=== PATIENT | male | born 1935 | race Caucasian/White ===

== ENCOUNTER 2018-02-02 03:39 | Outpatient (CLI) | payer MEDICARE, BC | END 2018-02-02 23:59 | disposition home or self-care (01) | LOC: DIABETIC 03:39 | PROVIDERS: ATTEND Internal Medicine | DX: E11.9 Type 2 diabetes mellitus without complications (principal); I10 Essential (primary) hypertension; J44.9 Chronic obstructive pulmonary disease, unspecified; Z87.891 Personal history of nicotine dependence | CPT/HCPCS: G0108 ==

== ENCOUNTER 2018-05-18 05:15 | Outpatient (CLI) | payer MEDICARE, BC | END 2018-05-18 23:59 | disposition home or self-care (01) | LOC: DIABETIC 05:15 | PROVIDERS: ATTEND Internal Medicine | DX: E11.9 Type 2 diabetes mellitus without complications (principal) | CPT/HCPCS: G0108 ==

== ENCOUNTER 2018-06-06 06:55 | Day surgery (SDC) | payer MEDICARE, BC ==
[2018-06-04 12:30] LABS: BASOPHILS % (AUTO) 0.4 % (0-1); EOSINOPHILS # (AUTO) 0.1 X10'3 (0-0.9); EOSINOPHILS % (AUTO) 1.6 % (0-6); HEMATOCRIT 45.3 % (42.0-52.0); HEMOGLOBIN 15.3 g/dl (14.0-17.9); LYMPHOCYTES # (AUTO) 1.5 X10'3 (1.1-4.8); LYMPHOCYTES % (AUTO) 21.4 % (21-51); MEAN CORPUSCULAR HEMOGLOBIN 30.1 PG (27.0-31.0); MEAN CORPUSCULAR HGB CONC 33.7 % (33.0-36.5); MEAN CORPUSCULAR VOLUME 89.5 FL (78-98); MEAN PLATELET VOLUME 8.6 FL (7.4-10.4); MONOCYTES # (AUTO) 0.6 X10'3 (0-0.9); MONOCYTES % (AUTO) 8.5 % (2-12); NEUTROPHILS # (AUTO) 4.8 X10'3 (1.8-7.7); NEUTROPHILS % (AUTO) 68.1 % (42-75); PLATELET COUNT 230 X10'3 (140-440); RED BLOOD COUNT 5.06 X10'6 (4.70-6.10); RED CELL DISTRIBUTION WIDTH 14.8 % (11.5-14.5); WHITE BLOOD COUNT 7.1 X10'3 (4.5-11.0)
[2018-06-04 12:41] LABS: INR 1.7 INR; PARTIAL THROMBOPLASTIN TIME 37 SECONDS (22-32); PROTHROMBIN TIME 17.6 SECONDS (9.0-12.0)
[2018-06-04 12:50] LABS: ALANINE AMINOTRANSFERASE 22 U/L (12-78); ALBUMIN 3.5 G/DL (3.4-5.0); ALBUMIN/GLOBULIN RATIO 1.1 (1.1-1.5); ALKALINE PHOSPHATASE 87 IU/L (46-116); ANION GAP 9 (8-16); ASPARTATE AMINO TRANSFERASE 11 U/L (10-37); BILIRUBIN,TOTAL 0.4 MG/DL (0.1-1.0); BLOOD UREA NITROGEN 20 MG/DL (7-18); BUN/CREATININE RATIO 19.4 (5.4-32.0); CALCIUM 8.9 MG/DL (8.5-10.1); CHLORIDE 103 MMOL/L (99-107); CREATININE 1.03 MG/DL (0.60-1.10); GLUCOSE 121 MG/DL (70-104); POTASSIUM 3.9 MMOL/L (3.5-5.1); SODIUM 139 MMOL/L (135-145); TOTAL PROTEIN 6.6 G/DL (6.4-8.2); eGFR 69 ML/MIN
[~2018-06-06] VITALS: Ht 170.2 cm; Wt 116.9 kg
[2018-06-06] VITALS (12 sets, daily range): BP systolic 120–146; BP diastolic 55–87
[2018-06-06] MEDS ORDERED: insulin Lispro (HumaLOG) vial - multi-dose SQ SCH (07:15)
[2018-06-06] MEDS ORDERED: dextrose 50%-water 50ml dispensing syringe IV PRN ×2 (07:15)
[2018-06-06] MEDS ORDERED: nitroGLYCERIN 0.4mg SUBLingual tab SL PRN (07:15)
[2018-06-06] MEDS ORDERED: dextrose ORAL solution 15 GM/59 ML bottle PO PRN ×2 (07:15)
[2018-06-06] MEDS ORDERED: glucagon, human recombinant 1mg kit SUBCUT PRN (07:15)
[2018-06-06] MEDS ORDERED: FURO-150 PO (07:39)
[2018-06-06] MEDS ORDERED: WARF4TAB69 PO (07:39)
[2018-06-06] MEDS ORDERED: CARSR60C PO (07:39)
[2018-06-06] MEDS ORDERED: FLO0.4C PO (07:39)
[2018-06-06] MEDS ORDERED: METF500T PO (07:39)
[2018-06-06] MEDS ORDERED: LORA10TA65 PO (07:39)
[2018-06-06] MEDS ORDERED: MOME17SP BOTHNARES (07:39)
[2018-06-06] MEDS ORDERED: ACET-2119 PO (07:39)
[2018-06-06] MEDS ORDERED: MONT10TA21 PO (07:39)
[2018-06-06] MEDS ORDERED: LISI1TAB9 PO (07:39)
[2018-06-06] MEDS ORDERED: FLUT1DIS7 INH (07:39)
[2018-06-06] MEDS ORDERED: ATOR10TA PO (07:39)
[2018-06-06] MEDS ORDERED: GLIM1TAB46 PO (07:39)
[2018-06-06] MEDS ORDERED: POTA10TA19 PO (07:39)
[2018-06-06] MEDS: LORazepam 0.5 MG tablet PO PRN (08:47)
[2018-06-06] MEDS: diphenhydrAMINE 25mg capsule PO PRN (08:47)
[2018-06-06] MEDS: normal saline 1000ml 1,000 ML IV SCH (08:47)
[2018-06-06] MEDS ORDERED: midazolam 2 mg/2 ml injection ONE (09:39)
[2018-06-06] MEDS ORDERED: fentaNYL/PF 50MCG/1 ML 2ML syringe ONE (09:39)
[2018-06-06] MEDS ORDERED: LIDOcaine 1% 30ml preserv. free vial ONE (09:40)
[2018-06-06] MEDS ORDERED: iohexol 350 MG/ML 50ML vial IV ONE (09:40)
[2018-06-06] MEDS ORDERED: iohexol 350MG/ML 100ml bottle IV ONE (09:40)
[2018-06-06] MEDS ORDERED: HYDROcodone/acetaminophen 10/325mg tab PO PRN (11:45)
[2018-06-06] MEDS ORDERED: OXAZEpam 15mg capsule PO PRN (11:45)
[2018-06-06] MEDS ORDERED: normal saline 1000ml 1,000 ML IV SCH (11:45)
[2018-06-06] MEDS ORDERED: ondansetron/PF 4mg/2ml inj IV PRN (11:45)
[2018-06-06] MEDS ORDERED: proCHLORperazine 10 MG/2 ml inj IV PRN (11:45)
[2018-06-06] MEDS ORDERED: HYDROcodone/acetaminophen 5mg/325mg tablet PO PRN (11:45)
[2018-06-06] MEDS ORDERED: insulin glargine (Lantus) pen - multi-dose SQ SCH (21:00)
== END 2018-06-06 17:45 | disposition home or self-care (01) ==
LOC: SSTAY O 06:55
PROVIDERS: ATTEND Internal Medicine Cardiovascular Disease
DX: I25.810 Atherosclerosis of coronary artery bypass graft(s) without angina pectoris (principal); I10 Essential (primary) hypertension; E78.5 Hyperlipidemia, unspecified; J44.9 Chronic obstructive pulmonary disease, unspecified; E11.9 Type 2 diabetes mellitus without complications; N40.0 Benign prostatic hyperplasia without lower urinary tract symptoms; I45.19 Other right bundle-branch block; I25.2 Old myocardial infarction; I49.8 Other specified cardiac arrhythmias; M19.90 Unspecified osteoarthritis, unspecified site; Z79.891 Long term (current) use of opiate analgesic; Z79.84 Long term (current) use of oral hypoglycemic drugs; Z88.1 Allergy status to other antibiotic agents; Z79.01 Long term (current) use of anticoagulants; Z72.89 Other problems related to lifestyle; Z86.79 Personal history of other diseases of the circulatory system; Z95.1 Presence of aortocoronary bypass graft; Z98.52 Vasectomy status; Z87.891 Personal history of nicotine dependence; Z79.899 Other long term (current) drug therapy; Z98.890 Other specified postprocedural states
CPT/HCPCS: 36415; 71046; 80053; 82948; 85025; 85610; 85730; 93005; 93459; 99152; 99153; A6257; C1760; C1769; J1644; J1815; J2250; J3010; J3490; J7030; Q0163; Q9967; A4620

== ENCOUNTER → 2022-01-24 | Outpatient (CLI) | payer OTHER ==
[~2022-01-24] MED LIST: ACET-2119 PO; AMA1T PO; ATOR10TA PO; CARSR60C PO; FLO0.4C PO; FLUT1DIS7 INH; FURO-150 PO; LISI1TAB49 PO; LORA10TA65 PO; METF500T PO; MOME17SP5 BOTHNARES; MONT10TA21 PO; POTA-192 PO; WARF4TAB69 PO
== END | disposition home or self-care (01) ==
LOC: RAD 13:03
PROVIDERS: ATTEND Internal Medicine
DX: R41.0 Disorientation, unspecified (principal); I65.29 Occlusion and stenosis of unspecified carotid artery
CPT/HCPCS: 70450